=== PATIENT | female | born 1995 | race Caucasian/White ===

== ENCOUNTER 2017-07-18 11:34 | Observation (INO) ==
--- NOTE | 2017-07-18 12:04 | Emergency Department Note ---
Disposition Clinical Impression: Hemorrhagic ovarian cyst Disposition: Admitted As Inpatient Condition: Fair Referrals: NONE,PCP [Primary Care Provider] - Forms: ED Satisfaction Letter, Work/School Release Time of Disposition: 15:11 Abdominal Pain HPI - General Chief Complaint: ED Abdominal Pain Stated Complaint: L flank pain Time Seen by Provider: 07/18/17 11:57 Source: patient Mode of arrival: ambulatory Limitations: no limitations Nursing Notes Reviewed: Yes Vital Signs Reviewed: Yes - History of Present Illness HPI Narrative: 21-year-old who comes in with left lower quadrant pain acute onset several hours prior to arrival she describes it as sharp pain in her left lower quadrant going to the left flank. Kidney stones has had ovarian cysts in the past denies . 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 Location: LLQ, L flank Pain Severity: moderate Pain Scale: 8 Quality: stabbing Radiation: none Migration to: no migration Improves with: nothing Worsens with: movement Associated symptoms: Reports: nausea Treatments prior to arrival: none - Related Data Previous Rx's Medication Instructions Recorded Naproxen [Naprosyn] 500 mg PO BID #20 tablet 05/29/16 HYDROcodone/Acet 5/325 mg [[place] 1 tab PO Q6H PRN #12 tab 07/15/16 5-325 mg] Naproxen [Naprosyn] 500 mg PO BID #20 tablet 07/15/16 diazePAM [Valium] 5 mg PO TID #10 tablet 07/15/16 Ibuprofen [Motrin] 800 mg PO Q8HR #30 tablet 07/21/16 Amoxicillin/Clavulanate [Augmentin] 875 mg PO BIDWM #20 tablet 10/01/16 Loratadine/Pseudophed (12 HR) 1 each PO BID #14 tab.er.12h 10/01/16 [Claritin D (12HR)] HYDROcodone/Acet 5/325 mg [[place] 1 tab PO Q6H PRN #10 tab 10/19/16 5-325 mg] Omeprazole 20 mg PO DAILY #7 tablet.dr 01/29/17 Sucralfate [Carafate] 1 gm PO QIDAC #80 tablet 01/29/17 Allergies Allergy/AdvReac Type Severity Reaction Status Date / Time Buspirone Allergy See Verified 07/18/17 11:46 Comments Latex, Natural Rubber Allergy See Verified 07/18/17 11:46 Comments methylprednisolone Allergy Hives Verified 07/18/17 11:46 [From Solu-Medrol] sertraline Allergy See Verified 07/18/17 11:46 Comments tramadol Allergy Hives Verified 07/18/17 11:46 All systems ED: reviewed and negative except as stated. Constitutional: Denies: fever, chills, weakness, weight change Eyes: Denies: eye pain, eye discharge, vision change ENT ED: Denies: ear pain, throat pain, dental pain, hearing loss, epistaxis, congestion, dysphagia Cardiovascular: Denies: chest pain, palpitations, dyspnea on exertion, edema, syncope Respiratory: Denies: cough, dyspnea, wheezes, hemoptysis, stridor Gastrointestinal: Reports: abdominal pain. Denies: nausea, vomiting, diarrhea, constipation, hematemesis, melena, hematochezia Genitourinary: Denies: dysuria, frequency, hematuria, discharge Musculoskeletal: Reports: back pain. Denies: neck pain, arthralgia, myalgia Integumentary: Denies: rash, abrasion, lesions Neurological: Denies: headache, weakness, numbness, paresthesias, confusion, abnormal gait, vertigo Psychiatric: Denies: anxiety, depression, suicidal thoughts, homicidal thoughts , auditory hallucinations, visual hallucinations Endocrine: Denies: fatigue Hematological/Lymphatic: Denies: easy bleeding, easy bruising Allergic/Immunologic: Denies: facial swelling, urticaria Abdominal Pain PMH - Past Medical History Medical history: Reports: migraine, other Female Surgical History: Reports: Adenoidectomy, Tonsillectomy CONCILIATION COURT JUDGE history: Reports: non-contributory Psychiatric history: Reports: anxiety, depression - Social History Smoking status: Current every day smoker Alcohol use: Reports: none Drug use: Reports: none Physical Exam - General Limitations: no limitations General appearance: alert - Head Head exam: atraumatic, normocephalic, normal inspection - Eye Eye exam: Present: normal appearance, PERRL, EOMI - ENT ENT exam: normal exam, normal oropharynx, mucous membranes moist - Neck Neck exam: Present: normal inspection, full ROM, trachea midline - Chest Chest inspection: Present: normal inspection, symmetric chest wall rise - Respiratory Respiratory exam: Present: normal lung sounds bilaterally - Cardiovascular Cardiovascular exam: Present: regular rate, normal rhythm, normal heart sounds - Abdominal Exam Abdominal exam: Present: soft, Non-Tender. Absent: tenderness, distention, guarding, rebound, rigidity - Extremities Exam Extremities exam: Present: normal inspection, full ROM. Absent: tenderness, pedal edema - Expanded Lower Extremity Exam Neurovascular/Tendon exam: Absent: motor deficit, sensory deficit, tendon deficit Gait: observed and normal - Back Exam Back exam: Present: normal inspection, full ROM. Absent: tenderness - Neurological Exam Neurological exam: Present: alert, oriented X3 - Psychiatric Psychiatric exam: Present: normal affect, normal mood - Skin Skin exam: Present: warm, dry, intact, normal color Course - Consultations Consultation #1: Discussed with radiology they are concerned that this may represent an ovarian torsion. Time: :18 Consultation #2: Discussed withAnnmarie Mccauley CONCILIATION COURT JUDGE she will discussed with the surgeon. Time: :18 Consultation #3: Discussed with Dr. Murry who will be up to see the patient. Time: 14:35 Additional Consultation(s): 15:10 pm the patient was evaluated by Dr. Murry who will admit the patient. Vital Signs Temperature 98.2 F 07/18/17 11:46 Pulse Rate 79 07/18/17 11:46 Respiratory Rate 20 07/18/17 11:46 Blood Pressure 126/81 07/18/17 11:46 O2 Sat by Pulse Oximetry 96 07/18/17 11:46 Temperature 98.2 F 07/18/17 11:46 Pulse Rate 79 07/18/17 11:46 Respiratory Rate 20 07/18/17 11:46 Blood Pressure 126/81 07/18/17 11:46 O2 Sat by Pulse Oximetry 96 07/18/17 11:46 Oxygen Delivery Oxygen Delivery Room Air Abdominal Pain - Lab Data Lab results reviewed: Yes I reviewed the patient's lab results. Result diagrams: 07/18/17 12:15 07/18/17 12:15 Lab Results 07/18/17 07/18/17 07/18/17 Range/Units 11:55 12:15 12:15 WBC 6.6 (4.3-11.1) K/mcL RBC 3.93 (3.82-4.97) M/mcL Hgb 12.9 (11.5-15.4) g/dL Hct 38.4 (35.3-44.9) % MCV 97.7 (83.0-100.0) fL MCH 32.8 (28.0-33.3) pg MCHC 33.6 (31.6-35.5) g/dL RDW 12.1 (11.5-14.5) % Plt Count 209 (140-400) K/mcL MPV 9.7 (9.4-12.4) fL Immature Gran % 0.2 (0-4) % Seg Neutrophils % 57.7 % Lymphocytes % 30.5 % Monocytes % 10.3 % Eosinophils % 0.8 % Basophils % 0.5 % Neutrophils # 3.8 (1.6-8.9) K/mcL Lymphocytes # 2.0 (0.6-4.6) K/mcL Monocytes # 0.7 (0.0-1.3) K/mcL Eosinophils # 0.1 (0.0-0.6) K/mcL Basophils # 0.0 (0.0-0.2) K/mcL Sodium 137 (136-145) mEq/L Potassium 3.8 (3.5-5.1) mEq/L Chloride 103 (98-107) mEq/L Carbon Dioxide 27 (23-29) mEq/L BUN 7 (6-20) mg/dL Creatinine 0.59 L (0.60-1.20) mg/dL Est GFR ( Amer) > 60 (> 60) Est GFR (Non-Af Amer) > 60 (> 60) BUN/Creatinine Ratio 12 (6-26) Glucose 84 (70-105) mg/dL Calculated Osmolality 281 (280-300) Calcium 9.7 (8.6-10.3) mg/dL Serum , Qual (Negative) Urine Color Yellow (Yellow) Urine Clarity Clear (Clear) Urine pH 6.0 (5.0-8.0) pH Units Ur Specific [place] 1.016 (1.010-1.025) Urine Protein Negative (Neg-Trace) mg/dL Urine Glucose (UA) Normal (Normal) mg/dL Urine Ketones Negative (Negative) mg/dL Urine Blood Negative (Negative) Urine Nitrite Negative (Negative) Urine Bilirubin Negative (Negative) Urine Urobilinogen Normal (Normal) mg/dL Ur Leukocyte Esterase Negative (Negative) Ur Culture Indicated? NO (NO) 07/18/17 Range/Units 12:15 WBC (4.3-11.1) K/mcL RBC (3.82-4.97) M/mcL Hgb (11.5-15.4) g/dL Hct (35.3-44.9) % MCV (83.0-100.0) fL MCH (28.0-33.3) pg MCHC (31.6-35.5) g/dL RDW (11.5-14.5) % Plt Count (140-400) K/mcL MPV (9.4-12.4) fL Immature Gran % (0-4) % Seg Neutrophils % % Lymphocytes % % Monocytes % % Eosinophils % % Basophils % % Neutrophils # (1.6-8.9) K/mcL Lymphocytes # (0.6-4.6) K/mcL Monocytes # (0.0-1.3) K/mcL Eosinophils # (0.0-0.6) K/mcL Basophils # (0.0-0.2) K/mcL Sodium (136-145) mEq/L Potassium (3.5-5.1) mEq/L Chloride (98-107) mEq/L Carbon Dioxide (23-29) mEq/L BUN (6-20) mg/dL Creatinine (0.60-1.20) mg/dL Est GFR ( Amer) (> 60) Est GFR (Non-Af Amer) (> 60) BUN/Creatinine Ratio (6-26) Glucose (70-105) mg/dL Calculated Osmolality (280-300) Calcium (8.6-10.3) mg/dL Serum , Qual Negative (Negative) Urine Color (Yellow) Urine Clarity (Clear) Urine pH (5.0-8.0) pH Units Ur Specific [place] (1.010-1.025) Urine Protein (Neg-Trace) mg/dL Urine Glucose (UA) (Normal) mg/dL Urine Ketones (Negative) mg/dL Urine Blood (Negative) Urine Nitrite (Negative) Urine Bilirubin (Negative) Urine Urobilinogen (Normal) mg/dL Ur Leukocyte Esterase (Negative) Ur Culture Indicated? (NO) - Radiology Data Radiology results reviewed: Yes I reviewed the patient's radiology results. Abdomen/Pelvis/Transvag US 07/18/17 12:01 IMPRESSION: 1. Complex left ovarian 4.4 x 3.7 x 3.6 cm mass. Differential includes complex hemorrhagic cyst; however, if patient has severe pain, ovarian torsion would also be in the differential. If no intervention is undertaken at this time, at a minimum, recommend pelvic ultrasound follow-up in 6-12 weeks. 2. Small amount of free fluid in pelvis. D/ / 07/18/2017 14:17:50 Eris Carlson MD / kelly Interpreting Provider: Eris Carlson MD Abdomen/Pelvis CT 07/18/17 12:02 IMPRESSION: 1. No urinary tract calcifications. 2. Left adnexal cystic lesion measuring 4 x 3.4 cm with trace pelvic fluid. These findings are likely physiologic and may account for her symptoms. I would recommend follow-up pelvic ultrasound in 6-12 weeks to document stability and/or resolution. 3. Diverticulosis without obvious inflammation. RECOMMENDATIONS: Follow-up pelvic ultrasound in 6-12 weeks. D/ / Mynor Lantigua MD / Mynor Lantigua MD Interpreting Provider: Mynor Lantigua MD
[2017-07-18 12:12] LABS: Bilirubin,Urine Negative (Negative); Blood,Urine Negative (Negative); Clarity,Urine Clear (Clear); Color,Urine Yellow (Yellow); Glucose,Urine (UA) Normal (Normal); Ketones,Urine Negative (Negative); Leukocyte Esterase,Urine Negative (Negative); Nitrite,Urine Negative (Negative); Protein,Urine Negative (Neg-Trace); Specific Gravity,Urine 1.016 (1.010-1.025); Urobilinogen,Urine Normal (Normal)
[2017-07-18 12:28] LABS: Basophils % 0.5 %; Eosinophils # 0.1 K/mcL (0.0-0.6); Eosinophils % 0.8 %; Hematocrit 38.4 % (35.3-44.9); Hemoglobin 12.9 g/dL (11.5-15.4); Immature Granulocytes % 0.2 % (0-4); Lymphocytes % 30.5 %; Mean Corpuscular HGB Conc 33.6 g/dL (31.6-35.5); Mean Corpuscular Hemoglobin 32.8 pg (28.0-33.3); Mean Corpuscular Volume 97.7 fL (83.0-100.0); Mean Platelet Volume 9.7 fL (9.4-12.4); Monocytes # 0.7 K/mcL (0.0-1.3); Monocytes % 10.3 %; Neutrophils # 3.8 K/mcL (1.6-8.9); Platelet Count 209 K/mcL (140-400); Red Blood Count 3.93 M/mcL (3.82-4.97); Red Cell Distribution Width 12.1 % (11.5-14.5); Segmented Neutrophils % 57.7 %
[2017-07-18 12:45] LABS: BUN/Creatinine Ratio 12 (6-26); Blood Urea Nitrogen 7 mg/dL (6-20); Calcium 9.7 mg/dL (8.6-10.3); Carbon Dioxide 27 mEq/L (23-29); Chloride 103 mEq/L (98-107); Glucose 84 mg/dL (70-105); Osmolality,Calculated 281 (280-300); Potassium 3.8 mEq/L (3.5-5.1); Sodium 137 mEq/L (136-145); eGFR For African Americans > 60 (> 60); eGFR For Non-African Americans > 60 (> 60)
[2017-07-18] MEDS ORDERED: *HR* FentaNYL (PF) 100 MCG/2 ML VIAL IM ONE (14:36)
[2017-07-18] MEDS ORDERED: Ondansetron ODT 4 MG TAB.RAPDIS SL ONE (14:36)
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
[2017-07-18] MEDS ORDERED: Ondansetron ODT 4 MG TAB.RAPDIS SL PRN (16:15)
[2017-07-18] MEDS ORDERED: Acetaminophen 325 MG TABLET PO PRN (16:15)
[2017-07-18] MEDS ORDERED: Naloxone 0.4 MG/ML INJ IVP PRN (16:15)
[2017-07-18] MEDS ORDERED: Mag Hydrox/Al Hydrox/Simeth 30 ML UDC PO PRN (16:15)
[2017-07-18] MEDS ORDERED: Ibuprofen 400 MG TABLET PO PRN (16:15)
[2017-07-18] MEDS: Nicotine 14 MG PATCH.TD24 TD SCH (16:45)
[2017-07-18] MEDS: *HR* HYDROcodone/Acet 5/325 mg TABLET PO PRN ×2 (18:29→23:56)
[2017-07-19 01:55] LABS: Basophils % 0.3 %; Eosinophils # 0.1 K/mcL (0.0-0.6); Eosinophils % 1.4 %; Hematocrit 35.6 % (35.3-44.9); Hemoglobin 12.1 g/dL (11.5-15.4); Immature Granulocytes % 0.2 % (0-4); Lymphocytes # 2.4 K/mcL (0.6-4.6); Lymphocytes % 41.5 %; Mean Corpuscular Hemoglobin 33.2 pg (28.0-33.3); Mean Corpuscular Volume 97.5 fL (83.0-100.0); Mean Platelet Volume 9.9 fL (9.4-12.4); Monocytes # 0.6 K/mcL (0.0-1.3); Monocytes % 9.9 %; Neutrophils # 2.8 K/mcL (1.6-8.9); Platelet Count 188 K/mcL (140-400); Red Blood Count 3.65 M/mcL (3.82-4.97); Red Cell Distribution Width 12.1 % (11.5-14.5); Segmented Neutrophils % 46.7 %
[2017-07-19 08:25] VITALS: BP 113/66
[2017-07-19] MEDS ORDERED: Ondansetron ODT 4 MG TAB.RAPDIS SL ONE (09:16)
[2017-07-19] MEDS: *HR* HYDROcodone/Acet 5/325 mg TABLET PO PRN (09:38)
[2017-07-19] MEDS: Nicotine 14 MG PATCH.TD24 TD SCH (09:38)
--- NOTE | 2017-07-19 11:42 | Discharge Summary ---
Date of Encounter: 07/19/17 Time of Encounter: 11:41 - Discharge Diagnosis (1) Hemorrhagic ovarian cyst Priority: Primary Status: Acute Comments: Discharge home, Tylenol and motrin for pain management, will give zofran rx for nausea. Follow up in office in 6 weeks for follow up US. - Discharge Medications Prescriptions: Ibuprofen [Motrin] 800 mg PO Q8HR #30 tablet Ondansetron ODT [Zofran ODT] 4 mg SL Q8HR PRN #10 tab.rapdis PRN Reason: Nausea And Vomiting Home Medications: Loratadine/Pseudophed (12 HR) [Claritin D (12HR)] 1 each PO BID #14 tab.er.12h 10/01/16 [Rx] Omeprazole 20 mg PO DAILY #7 tablet.dr 01/29/17 [Rx] Sucralfate [Carafate] 1 gm PO QIDAC #80 tablet 01/29/17 [Rx] Acetaminophen [Tylenol] 650 mg PO Q6HR PRN tablet 07/19/17 [Rx] Ibuprofen [Motrin] 800 mg PO Q8HR #30 tablet 07/19/17 [Rx] Nicotine Patch [Nicoderm] 14 mg TD DAILY patch.td24 07/19/17 [Rx] Ondansetron ODT [Zofran ODT] 4 mg SL Q8HR PRN #10 tab.rapdis 07/19/17 [Rx] Allergies/Adverse Reactions: 3 Allergy/AdvReac Type Severity Reaction Status Date / Time Buspirone Allergy See Verified 07/18/17 11:46 Comments Latex, Natural Rubber Allergy See Verified 07/18/17 11:46 Comments methylprednisolone Allergy Hives Verified 07/18/17 11:46 [From Solu-Medrol] sertraline Allergy See Verified 07/18/17 11:46 Comments tramadol Allergy Hives Verified 07/18/17 11:46 Data Procedures and tests throughout hospitalization: Laboratory Tests 07/19/17 01:38 WBC 5.9 RBC 3.65 L Hgb 12.1 Hct 35.6 MCV 97.5 MCH 33.2 MCHC 34.0 RDW 12.1 Plt Count 188 MPV 9.9 Immature Gran % 0.2 Seg Neutrophils % 46.7 Lymphocytes % 41.5 Monocytes % 9.9 Eosinophils % 1.4 Basophils % 0.3 Neutrophils # 2.8 Lymphocytes # 2.4 Monocytes # 0.6 Eosinophils # 0.1 Basophils # 0.0 Labs on day of discharge: Labs from last 24 hours 07/19/17 01:38 WBC 5.9 RBC 3.65 L Hgb 12.1 Hct 35.6 MCV 97.5 MCH 33.2 MCHC 34.0 RDW 12.1 Plt Count 188 MPV 9.9 Immature Gran % 0.2 Seg Neutrophils % 46.7 Lymphocytes % 41.5 Monocytes % 9.9 Eosinophils % 1.4 Basophils % 0.3 Neutrophils # 2.8 Lymphocytes # 2.4 Monocytes # 0.6 Eosinophils # 0.1 Basophils # 0.0 Date of admission: 07/18/17 15:24 Primary care physician: PCP NONE Discharging clinician: Geovanna Bernstein Anticipated date of discharge: 07/19/17 - Patient Status Disposition: Home, Self-Care Condition: Good Functional capacity at discharge: independent ambulation Overall status at discharge: patient is back to baseline - Discharge Instructions Follow Up With: NONE,PCP [Primary Care Provider] - - Diet and Activity Activity: resume usual activities as tolerated Diet: regular diet 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 zofran controls nausea. will discharge home in stable condition. follow up in 6 weeks. Time Attestation: Total time spent providing and/or coordinating discharge services: Time Spent: Less than 30 minutes Exam - Constitutional Vitals: Temp Pulse Resp BP Pulse Ox 98.1 F 75 16 113/66 99 07/19/17 08:24 07/19/17 08:24 07/19/17 08:24 07/19/17 08:24 07/19/17 03:40 General appearance IM: A&O X 3 - Respiratory Respiratory exam: Present: stridor - Cardiovascular Cardiovascular exam IM: Present: RRR - GI/Abdominal GI/Abdominal exam IM: normal bowel sounds, soft, tenderness - Extremities Exam Extremities exam IM: Present: full ROM, normal capillary refill - Neurological Exam Neurological exam: normal gait, oriented X3 - VTE Reasons for not Prescribing Prophylaxis: Treatment not Indicated - Low risk for VTE Documentation of Mechanical Device: Intermittent pneumatic compression device
== END 2017-07-19 12:21 | disposition home or self-care (01) ==
LOC: EMEROO 11:34 → 1NENUOBS 11:34
PROVIDERS: ADMIT Obstetrics & Gynecology; ATTEND Obstetrics & Gynecology